=== PATIENT | female | born 2005 | race Caucasian/White ===

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

== ENCOUNTER 2025-03-07 02:57 | Emergency (ER) | payer MEDICAID ==
[~2025-03-07] VITALS: Ht 157.5 cm; Wt 49.2 kg
[~2025-03-07 02:57] MED LIST changes: -IBUP-1985 PO; +IBUP600T52 PO; +LIDO-52 TOP; -LIDO700A32 TOP
[2025-03-07 03:01] VITALS: TEMP 99.5
--- NOTE | 2025-03-07 03:24 | Physician Documentation ---
History of Present Illness ~ Chief Complaint: Abdominal Pain Stated Complaint: ABDOMINAL PAIN Time Seen by MD: 03:24 Primary Medical Doctor: None HPI Patient presents to the emergency room with chief complaint of abdominal pain onset 30 minutes prior to arrival. She states that it has been a proximally one-week ago but resolved until this evening. She has had nothing for the pain. She continues to spot from her last menstrual cycle. She is sexually active. She reports normal bladder and bowel that has experiencing some nausea with two episodes of vomiting. Last Menstrual Period: Feb 21, 2025 Medication Reconciliation Allergies: Coded Allergies: No Known Allergies (Unverified , 02/09/14) Scheduled Ibuprofen (Ibuprofen), 1 TAB PO Q8H Lidocaine (Lidoderm), 1 PATCH TOP Q12H PRN Ondansetron Hcl (Zofran), 1 TAB PO Q6H Phenazopyridine HCl (Pyridium), 1 TAB PO Q8H Scheduled PRN Rizatriptan Benzoate (Maxalt), 5 MG PO DAILY PRN for pain Past Medical History Past Medical History: Anxiety Past Surgical History: no surgical history Last Menstrual Period: Feb 21, 2025 Alcohol Use: None Drug Use: marijuana Lives with: Mother Lives In: Home Occupation: student Review of Systems ROS All review of systems negative except as per HPI Physical Exam Vital Signs: Temperature: 99.5, Heart Rate: 74, Respiratory Rate: 16, BP: 109/75, Pulse Oximetry: 97, Weight: 49.200 Oxygen Flow Rate: 0 Physical Exam General: Patient is awake, alert, oriented x4 in mild distress Head: Normocephalic and atraumatic. Eyes: Conjunctival normal. EOMI. PERRL. ENT: Mucous membranes moist. Neck: Supple, trachea is midline. Chest: Clear to auscultation bilaterally without rales, rhonchi, or wheezes. There is no accessory muscle use or retractions. Cardiac: RRR without murmurs, gallops, or rubs. Abd: Soft, nondistended, nontender, mild diffuse abdominal tenderness focused over suprapubic area without peritonitis Progress Results/Orders Results/Orders Orders - SARMAD ROBERTSON MD Procalcitonin (03/07/25 03:29) Completed Orders - SARMAD ROBERTSON MD Hcg, Ur Ql (03/07/25 03:05) Cbc/Diff (03/07/25 03:05) Lipase (03/07/25 03:05) CMP (03/07/25 03:05) Ketorolac Trometh 15mg/Ml Vial (Toradol (03/07/25 03:30) Acetaminophen 325mg Tablet (Tylenol Tabl (03/07/25 03:30) Ondansetron Disint. Tablet (Zofran Odt T (03/07/25 03:30) Orphenadrine Citrate Inj. (Norflex Inj.) (03/07/25 03:30) Ua W/Microscopic, Cult If Ind (03/07/25 03:06) Medications Received in ER Medications (Trade) Dose Ordered Sig/Art Route PRN Reason Start Time Stop Time Status Last Admin Dose Admin (Tylenol tablet) 975 mg ONCE ONCE PO 03/07/25 03:30 03/07/25 03:31 DC 03/07/25 03:44 975 MG (Zofran ODT tablet) 8 mg ONCE ONCE PO 03/07/25 03:30 03/07/25 03:31 DC 03/07/25 03:44 8 MG Vital Signs 03/07/25 03/07/25 03/07/25 03:01 03:16 03:19 Temp 99.5 Pulse 89 74 Resp 16 16 B/P (MAP) 130/85 109/75 (86) Pulse Ox 98 97 O2 Flow Rate 0 0 Laboratory Tests Test 03/07/25 03:06 03/07/25 03:33 Urine Specimen Description Cln catch midstream Urine Color Yellow Urine Clarity Clear Urine pH 6.0 Urine Specific Orient 1.020 Urine Protein Negative Urine Glucose (UA) Negative Urine Ketones Negative Urine Occult Blood Trace-intact Urine Nitrite Negative Urine Bilirubin Negative Urine Urobilinogen 0.2 Urine Leukocyte Esterase Negative Urine RBC 0-2 Urine WBC 0-4 Urine Squamous Epithelial Cells Many Urine Uric Acid Crystals Few Urine Bacteria 1+ Urine Mucus Moderate Urine Culture Indicated Not ind Volume Urine Centrifuged 10 ml Urine HCG, Qualitative Negative Urine Comment White Blood Count 12.3 H Red Blood Count 4.38 Hemoglobin 13.8 Hematocrit 40.6 Mean Corpuscular Volume 92.6 Mean Corpuscular Hemoglobin 31.5 H Mean Corpuscular Hemoglobin Concent 34.0 Red Cell Distribution Width 13.2 Platelet Count 299 Mean Platelet Volume 7.7 Neutrophils (%) (Auto) 57.4 Lymphocytes (%) (Auto) 34.0 Monocytes (%) (Auto) 7.2 Eosinophils (%) (Auto) 0.8 Basophils (%) (Auto) 0.6 Neutrophils # (Auto) 7.1 Lymphocytes # (Auto) 4.2 Monocytes # (Auto) 0.9 Eosinophils # (Auto) 0.1 Basophils # (Auto) 0.1 CBC Comment Sodium Level 136 Potassium Level 3.6 Chloride Level 102 Carbon Dioxide Level 23.8 L Anion Gap 10 Blood Urea Nitrogen 7 Creatinine 0.82 Estimated GFR/1.73 m2 87 BUN/Creatinine Ratio 8.5 L Glucose Level 92 Calcium Level 8.3 L Total Bilirubin 0.2 Aspartate Amino Transf (AST/SGOT) 17 Alanine Aminotransferase (ALT/SGPT) 29 Alkaline Phosphatase 125 H Total Protein 6.6 Albumin 3.6 Globulin 3.0 Albumin/Globulin Ratio 1.2 Lipase 30 Chemistry Comments Medical Decision Making Findings Upon re-evaluation patient is feeling better. Patient presented to the emergency room for evaluation of abdominal pain and nausea as per HPI. Differentials include but are not limited to ectopic cholecystitis pancreatitis diverticulitis appendicitis dehydration therefore emergent labs ordered which were reassuring. Given risks of radiation for CT and benefits of CT I feel at this time the risks outweigh the benefits given patient's improvement of symptoms, reassuring vitals and labs. ER precautions discussed Departure Disposition: 01 HOME / SELF CARE / HOMELESS Impression: Primary Impression: Abdominal pain Condition: Improved Discharge Instructions: Abdominal Pain (Nonspecific) Referrals: NO PRIMARY CARE PROVIDER (PCP) Prescriptions Ondansetron 8mg ODT (Ondansetron Odt) 8 Mg Tab.rapdis 1 TAB PO Q6H for nausea/vomiting for 3 Days, #12 TAB 0 Refills Prov: SARMAD ROBERTSON MD 03/07/25 Dicyclomine Hcl* (Bentyl*) 10 Mg Capsule 1 CAP PO Q8H for Cramps for 30 Days, #90 CAP Prov: SARMAD ROBERTSON MD 03/07/25 Education Educated: Patient Educated regarding: diagnosis, treatment, need for follow up Signature Scribe Signature: No scribe Attestation: The note accurately reflects work and decisions made by me.Sarmad Robertson MD 03/07/25 04:18 SARMAD ROBERTSON MD Mar 07, 2025 03:24
[2025-03-07 03:40] LABS: LEUKOCYTE ESTERASE ,URINE NEGATIVE (Neg); NITRITES, URINE NEGATIVE (Neg); OCCULT BLOOD,URINE TRACE-INTACT (Neg)
[2025-03-07 03:41] LABS: UA COLLECTION TYPE CLN CATCH MIDSTREAM
[2025-03-07 03:42] LABS: URINE HCG NEGATIVE (NEG)
[2025-03-07] MEDS: ondansetron 4mg rapidly disintigrating tab PO ONE (03:44)
[2025-03-07 03:51] LABS: MUCUS STRANDS MODERATE /LPF (Neg); SQUAMOUS EPITHELIAL CELL,UR MANY /LPF (FEW)
[2025-03-07 03:52] LABS: URIC ACID CRYSTALS FEW /HPF (NEGATIVE)
[2025-03-07 03:53] LABS: MEAN PLATELET VOLUME 7.7 FL (7.4-10.4); RED CELL DISTRIBUTION WIDTH 13.2 % (11.5-14.5)
[2025-03-07 04:06] LABS: CREATININE 0.82 MG/DL (0.40-0.90); TOTAL CARBON DIOXIDE 23.8 MMOL/L (24-32); eCRCL 84 ML/MIN; eGFR 87 ML/MIN
[2025-03-07] MEDS: ketorolac trometh 15mg/ml vial 15 MG/ML ML IM ONE (04:15)
[2025-03-07] MEDS: orphenadrine citrate 60mg/2ml inj. IM ONE (04:15)
[2025-03-07] MEDS ORDERED: ONDA-245 PO (04:18)
[2025-03-07] MEDS ORDERED: DICY10CA88 PO (04:18)
[2025-03-07 04:19] VITALS: BP 108/75; PULSE 75; RESP 16; O2SAT 98
== END 2025-03-07 04:27 | disposition home or self-care (01) ==
LOC: ER 02:57
DX: R10.84 Generalized abdominal pain (principal); R11.2 Nausea with vomiting, unspecified; F41.9 Anxiety disorder, unspecified; F12.90 Cannabis use, unspecified, uncomplicated; Z79.899 Other long term (current) drug therapy
CPT/HCPCS: 36415; 80053; 81001; 81025; 83690; 84145; 85025; 99283